=== PATIENT | female | born 1995 | race Caucasian/White ===

== ENCOUNTER 2017-10-05 00:19 | Emergency (ER) | payer OTHER ==
[~2017-10-05] VITALS: Ht 160 cm; Wt 55.9 kg
[2017-10-05 00:24] VITALS: TEMP 36.7; Ht 160 cm; Wt 55.9 kg
[2017-10-05] MEDS ORDERED: CEFDINIR 300 MG CAP PO STA (00:45)
[2017-10-05] MEDS ORDERED: CIPRO 0.2%/HYDROCORTISONE 1% OTIC SUSP 10 ML BTL OTB STA (00:45)
--- NOTE | 2017-10-05 00:50 | EMERGENCY ROOM VISIT NOTE ---
History Report prepared by Ly: Dwight Mccullough Under the Supervision of: Dr. Uli Britt M.D. First contact with patient: 00:28 Chief Complaint: EAR PAIN Stated Complaint: HUGE PAIN IN BOTH EARS History of Present Illness The patient is a 22 year old female who presents to the Emergency Room with complaints of constant bilateral ear pain beginning a few days ago. The patient states that she had a cold for a few days, and put ear wax drops into her ears thinking it would help her symptoms. She notes that it currently feels like "someone is stabbing her ears," and that her right ear hurts worse than her left. She also complains of a mild runny nose and a mild fever a few days ago. She denies any rash, trouble hearing, and sore throat. Source of History: patient Onset: a few days ago Position: ear (bilateral) Quality: stabbing Timing: constant Associated Symptoms: + fevers (mild), No sorethroat, No rash Note: She also complains of a mild runny nose. She denies any trouble hearing. Review of Systems See HPI for pertinent positives & negatives. A total of 6 systems reviewed and were otherwise negative. Past Medical & Surgical Medical Problems: (1) No chronic problems Family History No pertinent family history stated. Social History Smoking Status: Never Smoker Marital Status: single Housing Status: lives with roommate Occupation Status: student Current/Historical Medications Scheduled Cefdinir (Omnicef), 300 MG PO Q12H Fluticasone Propionate (Nasal) (Flonase Allergy Relief), 1 SPRAY KELLY DAILY Physical Exam Vital Signs Date Time Temp Pulse Resp B/P (MAP) Pulse Ox O2 Delivery O2 Flow Rate FiO2 10/05/17 01:21 80 20 126/70 98 10/05/17 00:24 36.7 72 18 112/70 98 Room Air Physical Exam GENERAL: Patient is uncomfortable appearing and in minimal distress. HEENT: No acute trauma, normocephalic atraumatic, mucous membranes moist, no nasal congestion, no scleral icterus. Bulging erythematous right TM with surrounding inflammation/erythema of distal portion of canal, mildly erythematous left TM with effusion and erythema of distal left canal. NECK: No stridor, no adenopathy, no meningismus, trachea is midline. LUNGS: No dyspnea. Clear to auscultation and equal bilaterally. No wheeze, no rhonchi. HEART: Regular rate and rhythm. No murmurs, rubs, gallops appreciated. EXTREMITIES: Normal motion all extremities, no cyanosis, no edema. NEUROLOGIC: Alert and oriented, no acute motor or sensory deficits, no focal weakness, cranial nerves grossly intact. SKIN: No rash, no jaundice, no diaphoresis. Medical Decision & Procedures Medications Administered Medications (Trade) Dose Ordered Sig/Luciano Route Start Time Stop Time Status Last Admin Dose Admin Ciprofloxacin/ Hydrocortisone (Cipro Hc Otic Susp) 2 drops NOW STAT OTB 10/05/17 00:45 10/05/17 00:47 DC 10/05/17 01:15 2 DROPS Cefdinir (Omnicef Cap) 300 mg ONE STAT PO 10/05/17 00:45 10/05/17 00:47 DC 10/05/17 01:15 300 MG ED Course 0040: The patient was evaluated in room B2. A complete history and physical exam was performed. 0110: Reevaluated the patient. Discussed results and discharge instructions: she verbalized understanding and agreement. The patient is ready for discharge. Medical Decision 22 yr old female with bilateral ear pain after placing ear wax drops. Clearly has OM on right side and has effusion on left with bilateral canal irritation. Suspect she had reaction to whatever drops she put in but as can't rule out OE, and fact HC might help irritation will use some Cipro HC for next few days. Will clearly need abx and with reported amox allergy will place on cefdinir. Stable, non-tender mastoids, no evidence meningitis I feel she is safe for discharge. I did advise Flonase/Nasonex for sinus congestion issue. Medication Reconcilliation Current Medication List: was personally reviewed by me Blood Pressure Screening Patient's blood pressure: Normal blood pressure Blood pressure disposition: Did not require urgent referral Impression Primary Impression: Otitis media, right Additional Impressions: Irritation of both external auditory canals Acute effusion of left ear Scribe Attestation The scribe's documentation has been prepared under my direction and personally reviewed by me in its entirety. I confirm that the note above accurately reflects all work, treatment, procedures, and medical decision making performed by me. Departure Information Dispostion Home / Self-Care Prescriptions Fluticasone Propionate (Nasal) (Flonase Allergy Relief) 50 Mcg/Act Spr 1 SPRAY KELLY DAILY for 7 Days, #1 BTL Prov: Uli Britt M.D. 10/05/17 Cefdinir (Omnicef) 300 Mg Cap 300 MG PO Q12H for 7 Days, #14 CAP Prov: Uli Britt M.D. 10/05/17 Referrals No Doctor, Assigned (PCP) Forms HOME CARE DOCUMENTATION FORM, IMPORTANT VISIT INFORMATION, WORK / SCHOOL INSTRUCTIONS Patient Instructions ED Otitis Media Acute Adult, [facility] Additional Instructions Use 3 drops Cipro HC both ears twice daily for next few days until no further discomfort. Use Flonase for nasal/sinus congestion. Use Tylenol and Motrin as needed for discomfort. Problem Qualifiers
[2017-10-05] MEDS ORDERED: CEFD1CAP14 PO (00:54)
[2017-10-05] MEDS ORDERED: FLUT0.15 NAE (00:54)
[2017-10-05 01:21] VITALS: BP 126/70; PULSE 80; O2SAT 98
== END 2017-10-05 01:23 | disposition home or self-care (01) ==
LOC: C.EDB 00:22
DX: H66.91 Otitis media, unspecified, right ear (principal); H61.899 Other specified disorders of external ear, unspecified ear; H65.192 Other acute nonsuppurative otitis media, left ear